=== PATIENT | male | born 1990 | race Caucasian/White ===

== ENCOUNTER 2022-01-06 18:35 | Emergency (ER) | payer SELFPAY ==
[2022-01-06] VITALS (7 sets, daily range): BP systolic 134–160; BP diastolic 87–114; PULSE 82–90; RESP 16–18; TEMP 36.6–36.8; O2SAT 100
--- NOTE | ~2022-01-06 | CT_ITS ---
EXAMINATION: CT brain wo con DATE: 01/06/2022 23:00 INDICATION: dizziness, SARMIENTO . TECHNIQUE: Computed tomography (CT) of the head was performed without intravenous contrast. The mA wa s adjusted according to patient size. Iterative reconstruction technique was employed. The dose-lengt h product was 681.00 mGy-cm. COMPARISON: None FINDINGS: No acute intracranial hemorrhage or extra-axial fluid collection. No hydrocephalus, mass, or herniation. No acute ischemic infarct. Unremarkable dural venous sinus attenuation. No acute osseous abnormality. The aerated spaces are clear. IMPRESSION: No acute intracranial process. Reviewed, dictated and finalized at location K.
--- NOTE | 2022-01-06 22:54 | ED.DIZZY ---
HPI - Dizziness General Chief Complaint: Dizziness Stated Complaint: vertigo Time Seen by Provider: 01/06/22 22:12 Source: patient Mode of arrival: ambulatory Limitations: no limitations History of Present Illness HPI Narrative: Patient is a 31 y/o male who presents to the ED with c/o dizziness. Patient reports he was woken up from his sleep around 4 AM this morning with dizziness, described as though the room was spinning. States the dizziness was worse with laying flat, turning onto his side, turning his head left or right. Dizziness can be resolved with sitting still and upright. Also reports slight headache and feeling nauseous with the dizziness, but denied vomiting. Denies any vision changes, tinnitus, otalgia, abdominal pain, chest pain, difficulty breathing, weakness, recent cough or cold symptoms, history of similar symptoms. Related Data Allergies Allergy/AdvReac Type Severity Reaction Status Date / Time No Known Allergies Allergy Mild Verified 08/15/09 17:39 Review of Systems Review of Systems: CONSTITUTIONAL: Denies fever, chills, or sweats. EYES: Denies visual changes. ENT: Denies rhinorrhea, congestion, sore throat, tinnitus, or otalgia. CARDIOVASCULAR: Denies chest pain, palpitations. RESPIRATORY: Denies cough or dyspnea. GASTROINTESTINAL: Reports nausea. Denies abdominal pain, vomiting, or diarrhea. NEUROLOGIC: Reports headache, dizziness. Denies weakness. All systems reviewed & are unremarkable except as noted in HPI and below PMFSH Past Medical History Medical History No pertinent past medical history Surgical History Surgical History No pertinent past surgical history Family History Family History (Updated 11/23/15 @ 23:21 by DOCTOR UNKNOWN) Mother Patient's mother is in good health Father Patient's father is in good health Sibling Patient's sister is in good health Social History Social History Smoking status: Never smoker Alcohol intake: never Exam Narrative: GENERAL: Well appearing, well-nourished, non-toxic, in no acute distress. HEAD: Normocephalic, atraumatic. EYES: PERRL/EOMI, conjunctivae clear bilaterally. No significant nystagmus. NOSE: Normal, no drainage. EARS: TMS clear, with good light reflex. No erythema or bulging. No cerumen impaction. NECK: Supple. No adenopathy, no masses. RESPIRATORY: Airway patent, respirations nonlabored. Clear to auscultation bilaterally, no rales, rhonchi, wheezing. CARDIOVASCULAR: Regular rate and rhythm without murmurs, rubs, or gallops. Peripheral pulses 2+ and equal bilaterally. ABDOMINAL: Soft, nontender, nondistended, no hepatosplenomegaly. Normoactive BS. MUSCULOSKELETAL: Moves all extremities. Strength/ROM intact without gross deformities. SKIN: Warm, dry, normal color. No rashes. NEURO: A&O X3. Speech clear. Follows commands. CN II-XII intact. Sensation grossly intact. No ataxic movements. Strength 5/5 in upper and lower extremities bilaterally. No focal deficits. Positive Hughes-Hallpike testing. PSYCHIATRIC: Appropriate mood and affect. Normal interaction. Course Vital Signs Vital signs: Vital Signs Temperature 97.8 F 01/06/22 18:53 Pulse Rate 87 01/06/22 18:53 Respiratory Rate 18 01/06/22 18:53 Blood Pressure 146/97 H 01/06/22 18:53 Pulse Oximetry 100 01/06/22 18:53 Oxygen Delivery Room Air 01/06/22 18:53 Temperature 98.3 F 01/06/22 23:49 Pulse Rate 84 01/07/22 00:35 Respiratory Rate 16 01/07/22 00:35 Blood Pressure 120/96 H 01/07/22 00:35 Pulse Oximetry 100 01/07/22 00:35 Oxygen Delivery Room Air 01/06/22 18:53 MDM - Dizziness MDM Narrative Medical decision making narrative: Patient presented to ED with room spinning dizziness. Vital signs stable upon arrival. Patient neurologically intact on exam. N
[2022-01-06] MEDS: MECLIZINE HCL 25 MG TABLET PO (23:09)
[2022-01-06] MEDS: ONDANSETRON INJ 4 MG/2 ML VIAL IV PUSH (23:11)
[2022-01-06] MEDS: SODIUM CHLORIDE 0.9% IV 1,000 ML 999 ML IV CONT (23:11)
[2022-01-06 23:21] LABS: Basophils Absolute Auto 0.1 K/mm3 (0.0-0.1); Basophils Percent Auto 0.7 % (0.2-1.2); Eosinophils Percent Auto 0.5 % (0-4.4); Hematocrit 43.9 % (42.0-52.0); Hemoglobin 15.1 g/dL (14.0-18.0); Immature Granulocyte Absolute 0.03 K/mm3 (0.00-0.031); Immature Granulocyte Percent A 0.4 % (0-0.5); Lymphocytes Absolute Auto 2.81 K/mm3 (0.9-3.2); Lymphocytes Percent Auto 37.4 % (18.3-44.2); Mean Corpuscular HGB Conc 34.4 g/dl (32-36); Mean Corpuscular Hemoglobin 31.3 pg (26-34); Mean Corpuscular Volume 91.1 fl (80-100); Monocytes Absolute Auto 0.6 K/mm3 (0.1-0.6); Monocytes Percent Auto 7.3 % (2.6-8.5); Neutrophils Percent Auto 53.7 % (45.5-73.1); Platelet Count Result 283 k/mm3 (150-375); Red Blood Count 4.82 M/mm3 (4.6-6.20); Red Cell Distribution Width 12.4 % (11.5-14.5); White Blood Count 7.5 K/mm3 (4.5-10.0)
[2022-01-06 23:30] LABS: Alanine Aminotransferase 69 U/L (6-50); Albumin Level 5.1 g/dL (3.5-5.1); Alkaline Phosphatase 60 U/L (38-126); Anion Gap 16 mmol/L (8-16); Aspartate Amino Transferase 43 U/L (17-59); Bilirubin,Total 0.4 mg/dL (0.2-1.3); Blood Urea Nitrogen 10 mg/dL (9-20); Calcium 9.4 mg/dL (8.4-10.2); Carbon Dioxide 27 mmol/L (22-30); Chloride 101 mmol/L (98-107); Estimated CRCL calculation 113 ml/min; Estimated Glomerular Filt Rate > 60; Glucose 94 mg/dL (65-110); Magnesium 2.3 mg/dL (1.6-2.3); Potassium 3.7 mmol/L (3.4-5.0); Sodium 144 mmol/L (137-145)
[2022-01-07 00:35] VITALS: BP 120/96; PULSE 84; RESP 16; O2SAT 100
== END 2022-01-07 00:37 | disposition home or self-care (01) ==
PROVIDERS: Physician Assistant; Emergency Provider Emergency Medicine
DX: H81.10 Benign paroxysmal vertigo, unspecified ear (principal)
CPT/HCPCS: 36415; 70450; 80053; 83735; 85025; 96365; 96375; 99284; A9270; J0131; J2405; J7030